=== PATIENT | male | born 1965 | race Caucasian/White ===

== ENCOUNTER 2017-01-19 13:09 | Emergency (ER) | payer OTHER ==
[2017-01-19 13:20] VITALS: BP 153/88; PULSE 82; RESP 20; TEMP 98.1
[2017-01-19] MEDS ORDERED: AMOXICILLIN 500 MG CAP PO STA (14:16)
[2017-01-19] MEDS ORDERED: IBUPROFEN 800 MG TAB PO STA (14:16)
[2017-01-19] MEDS ORDERED: PSEUDOEPHEDRINE 30 MG TAB PO STA (14:16)
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
== END 2017-01-19 14:26 | disposition home or self-care (01) ==
LOC: EC 13:09
DX: H60.91 Unspecified otitis externa, right ear (principal); R51 Headache; R05 Cough; R09.81 Nasal congestion; F17.200 Nicotine dependence, unspecified, uncomplicated
CPT/HCPCS: 99283

== ENCOUNTER 2017-01-23 13:49 | Emergency (ER) | payer OTHER ==
[2017-01-23 14:12] VITALS: RESP 16
[2017-01-23] MEDS ORDERED: SODIUM CHLORIDE 0.9% 1,000 ML IV STA (14:32)
[2017-01-23] MEDS ORDERED: IPRATROPIUM-ALBUTEROL 3 ML NEB INHALATION STA (14:32)
[2017-01-23] MEDS ORDERED: methylPREDNISolone SOD SUCCI 125 MG/2 ML VIAL IV STA (14:32)
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
[2017-01-23 15:08] LABS: Basophils % (A) 1 %; CH 31.8; CHCM 35.6; Eosinophils # (A) 0.1 k/uL (0-0.7); Eosinophils % (A) 1 %; HCT 44.4 % (39.0-53.0); HDW 2.78; HGB 15.4 gm/dL (13.0-17.5); Luc # (Auto) 0.19; Luc % (Auto) 2; Lymphocytes # (A) 1.5 k/uL (1.0-4.8); Lymphocytes % (A) 17 %; MCH 31.2 pg (25.0-35.0); MCHC 34.8 g/dL (31.0-37.0); MCV 89.8 fL (80.0-100.0); Mean Platelet Volume 6.6; Monocytes # (A) 0.3 k/uL (0-1.0); Monocytes % (A) 4 %; Neutrophils # (A) 6.5 k/uL (1.3-7.7); Neutrophils % (A) 75 %; RBC 4.94 m/uL (4.30-5.90); RDW 13.3 % (11.5-15.5); WBC 8.6 k/uL (3.8-10.6); WBC (Perox) 8.79
[2017-01-23 15:16] LABS: Anion Gap 10 mmol/L; Blood Urea Nitrogen 21 mg/dL (9-20); Calcium 9.7 mg/dL (8.4-10.2); Carbon Dioxide 26 mmol/L (22-30); Chloride 105 mmol/L (98-107); Glucose 116 mg/dL (74-99); Non-African American GFR(MDRD) >60 (>60 ml/min/1.73 sqM); Sodium 141 mmol/L (137-145)
--- NOTE | 2017-01-23 15:20 | XR ---
EXAMINATION TYPE: XR chest 2V DATE OF EXAM: 01/23/2017 3:02 PM COMPARISON: 09/23/2016 HISTORY: 51-year-old male with pain TECHNIQUE: PA and lateral views FINDINGS: The heart is normal size. Mild elongation of the thoracic aorta. Mild interstitial prominence is unch anged. Mild hyperinflation. No consolidation or pleural effusion. IMPRESSION: COPD without acute cardiopulmonary process.
[2017-01-23] MEDS ORDERED: RX INFO: IV CONTRAST WAS GIVEN 1 EACH MISC MISCELLANE PRN (15:21)
--- NOTE | 2017-01-23 16:38 | CT ---
CT CHEST FOR PULMONARY EMBOLISM. EXAMINATION TYPE: CT angio chest DATE OF EXAM: 01/23/2017 4:28 PM INDICATION: Patient complains of productive cough. CT DLP: 329.8 mGycm, Automated exposure control for dose reduction was used. CONTRAST: Patient injected with 100 mL of Omnipaque 350. COMPARISON: 11/10/2015 TECHNIQUE: CT of the chest is performed on a spiral scan at 2 mm thick sections. Study is performed with intravenous contrast timed for evaluation for pulmonary embolism. This will limit additional po rtions of the evaluation. 3-D MIP images reconstructed by the technologist are reviewed on the compu ter in the coronal and sagittal planes. FINDINGS: No persistent filling defects are evident to suggest an acute pulmonary embolism. Contrast timing chrissy ears less optimal with some limitation on the peripheral subsegmental branches. No mediastinal or hilar adenopathy enlarged by CT criteria is evident. The ascending aorta diameter at the level of the main pulmonary artery is 3.7 cm. The main pulmonary artery diameter at the bifur cation is 2.7 cm. Coronary artery calcification is present. Emphysematous changes are present with scattered small blebs. Some peribronchial thickening may be pr esent. Correlate for chronic bronchitis. Small area of pneumonitis within the mid right lobe. Series 5 image 64 There is some pneumonitis hagan ge and/or pulmonary fibrosis within the right middle lobe. Within the periphery of the right middle l obe couple of small nodules measuring 0.6-0.3 cm in size series 5 image 82 0.5 cm nodules subtly more inferior on series 5 image 84. Additional small nodules including 0.5 cm nodule series 5 image 90. Previous lingular consolidation has resolved. Nodular densities in the right middle lobe are new. Are as of pneumonitis are new. The compressive atelectasis posteriorly is diminished. Compressive atelectasis is present within the portions of the lung bases bilaterally. Limited CT section through the upper abdomen are unremarkable. IMPRESSIONS: 1. No acute pulmonary embolism. 2. Interval development of small nodular densities within the right middle lobe discussed above. Some areas of pneumonitis are within the right middle lobe. Pneumonia and other infectious etiologies cou ld be considered. Neoplasm is not excluded. These are new from October 2015. Follow-up CT chest exam in 3 months is recommended.
[2017-01-23 17:03] VITALS: BP 123/77; PULSE 88; TEMP 99.7
== END 2017-01-23 17:01 | disposition home or self-care (01) ==
LOC: EC 13:49
DX: J40 Bronchitis, not specified as acute or chronic (principal); R93.8 Abnormal findings on diagnostic imaging of other specified body structures; R79.1 Abnormal coagulation profile; F17.200 Nicotine dependence, unspecified, uncomplicated
CPT/HCPCS: 99284; 96374; 96361; 36415; 94640 ×2; 85379; 80048; 83735; 85025; 87502; 71020; 71275; J2930; Q9967

== ENCOUNTER → 2017-02-13 | Outpatient (CLI) | payer OTHER ==
[2017-02-13 15:12] LABS: Basophils % (A) 1 %; CH 31.5; CHCM 35.2; Eosinophils # (A) 0.1 k/uL (0-0.7); Eosinophils % (A) 3 %; HGB 14.5 gm/dL (13.0-17.5); Luc % (Auto) 4; Lymphocytes # (A) 1.7 k/uL (1.0-4.8); Lymphocytes % (A) 36 %; MCH 31.1 pg (25.0-35.0); MCHC 34.5 g/dL (31.0-37.0); MCV 89.9 fL (80.0-100.0); Mean Platelet Volume 6.6; Monocytes # (A) 0.2 k/uL (0-1.0); Monocytes % (A) 4 %; Neutrophils # (A) 2.4 k/uL (1.3-7.7); Neutrophils % (A) 52 %; RBC 4.67 m/uL (4.30-5.90); WBC 4.7 k/uL (3.8-10.6); WBC (Perox) 4.62
[2017-02-13 15:19] LABS: Appearance,Urine Clear (Clear); Bacteria,Urine Rare /hpf; Bilirubin,Urine Negative (Negative); Glucose,Urine (UA) Negative (Negative); Ketones,Urine Negative (Negative); Leukocyte Esterase,Urine Negative (Negative); Nitrite,Urine Negative (Negative); PH, Urine 6.5 (5.0-8.0); Particle Count 1799; Protein,Urine 1+ (Negative); RBC,Urine 6 /hpf (0-5); UA Billing (MACRO vs. MICRO) MICRO; Urobilinogen,Urine <2.0 mg/dL (<2.0); WBC,Urine 1 /hpf (0-5)
[2017-02-13 18:06] LABS: Erythrocyte Sedimentation Rate 44 mm/hr (0-15)
== END | disposition home or self-care (01) ==
LOC: LABWHC1 14:37
PROVIDERS: ATTEND Internal Medicine
DX: R04.2 Hemoptysis (principal); A50.02 Early congenital syphilitic osteochondropathy
CPT/HCPCS: 36415; 81001; 85025; 85652; 86038; 86255

== ENCOUNTER 2017-05-07 11:26 | Emergency (ER) | payer OTHER ==
[2017-05-07 11:42] VITALS: TEMP 97.8
[2017-05-07 12:45] LABS: Basophils % (A) 1 %; CH 32.9; CHCM 35.1; Eosinophils # (A) 0.1 k/uL (0-0.7); Eosinophils % (A) 2 %; HCT 47.7 % (39.0-53.0); HDW 2.78; HGB 15.9 gm/dL (13.0-17.5); Luc # (Auto) 0.15; Luc % (Auto) 3; Lymphocytes # (A) 1.5 k/uL (1.0-4.8); Lymphocytes % (A) 33 %; MCH 31.3 pg (25.0-35.0); MCHC 33.3 g/dL (31.0-37.0); MCV 94.1 fL (80.0-100.0); Mean Platelet Volume 7.1; Monocytes # (A) 0.2 k/uL (0-1.0); Monocytes % (A) 4 %; Neutrophils # (A) 2.7 k/uL (1.3-7.7); Neutrophils % (A) 57 %; RBC 5.07 m/uL (4.30-5.90); WBC 4.7 k/uL (3.8-10.6); WBC (Perox) 4.65
[2017-05-07 12:59] LABS: ALT 37 U/L (21-72); AST 24 U/L (17-59); Alkaline Phosphatase 117 U/L (38-126); Anion Gap 8 mmol/L; Blood Urea Nitrogen 18 mg/dL (9-20); C Reactive Protein 16.8 mg/L (<10.0); Calcium 9.7 mg/dL (8.4-10.2); Carbon Dioxide 27 mmol/L (22-30); Chloride 105 mmol/L (98-107); Glucose 84 mg/dL (74-99); Non-African American GFR(MDRD) >60 (>60 ml/min/1.73 sqM); Potassium 4.3 mmol/L (3.5-5.1); Sodium 140 mmol/L (137-145); Total Bilirubin 0.7 mg/dL (0.2-1.3); Total Protein 7.7 g/dL (6.3-8.2); Uric Acid 5.6 mg/dL (3.5-8.5)
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
[2017-05-07 13:38] VITALS: BP 157/82; PULSE 79; RESP 18
== END 2017-05-07 13:38 | disposition home or self-care (01) ==
LOC: EC 11:26
DX: M25.422 Effusion, left elbow (principal); M25.421 Effusion, right elbow; F17.200 Nicotine dependence, unspecified, uncomplicated; Z98.890 Other specified postprocedural states
CPT/HCPCS: 36415; 80053; 84550; 85025; 86140; 99284

== ENCOUNTER → 2017-05-30 | Outpatient (CLI) | payer OTHER ==
--- NOTE | 2017-05-30 08:32 | CT ---
EXAMINATION TYPE: CT chest w con DATE OF EXAM: 05/30/2017 COMPARISON: CTA chest January 23, 2017. HISTORY: Microscopic polyangiitis CT DLP: 332.3 mGycm. Automated Exposure Control for Dose Reduction was Utilized. TECHNIQUE: CT scan of the thorax is performed following with IV Contrast, patient injected with 100 mL of Omnipaque 300. FINDINGS: LUNGS: The lungs are predominantly clear on current study, there is no concerning parenchymal mass or nodule identified. Dependent atelectasis is seen in both lower lobes. No suspicious consolidation o r groundglass opacity to suggest alveolar hemorrhage is identified currently. There is resolution of ill-defined peribronchial vascular groundglass and nodular opacities in the right midlung on prior s tudy. No significant fibrosis or honeycombing is seen. There is no pleural effusion or pneumothorax s een. The tracheobronchial tree is patent. MEDIASTINUM: There are no greater than 1 cm hilar or mediastinal lymph nodes. No cardiomegaly or pe ricardial effusion is seen. Coronary artery calcification is redemonstrated which is noted marker fo r coronary artery disease. Ascending aorta measures up to 3.6 cm in diameter on axial image 29 stable from prior. OTHER: Thoracolumbar spine is somewhat straightened on sagittal images with mild to moderate multilev el spurring seen. IMPRESSION: No significant acute or chronic pulmonary parenchymal process currently.
== END | disposition home or self-care (01) ==
LOC: RADCTMAIN 06:58
PROVIDERS: ATTEND Internal Medicine Rheumatology
DX: M31.7 Microscopic polyangiitis (principal)
CPT/HCPCS: 71260; Q9967

== ENCOUNTER 2017-07-05 16:53 | Emergency (ER) | payer OTHER ==
[2017-07-05 16:56] VITALS: BP 159/95; PULSE 108; RESP 20; TEMP 97.1
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
== END 2017-07-05 17:38 | disposition home or self-care (01) ==
LOC: EC 16:53
DX: H72.91 Unspecified perforation of tympanic membrane, right ear (principal); F17.200 Nicotine dependence, unspecified, uncomplicated
CPT/HCPCS: 99282

== ENCOUNTER 2017-07-13 17:05 | Emergency (ER) | payer OTHER ==
[2017-07-13] MEDS ORDERED: SODIUM CHLORIDE 0.9% 500 ML IV STA (17:52)
[2017-07-13] MEDS ORDERED: SODIUM CHLORIDE 0.9% 1,000 ML IV STA (17:52)
[2017-07-13] MEDS ORDERED: RX INFO: IV CONTRAST WAS GIVEN 1 EACH MISC MISCELLANE PRN (17:52)
[2017-07-13] MEDS ORDERED: MAG HYDROX/AL HYDROX/SIMETH 30 ML, HYOSCYAMINE ELIXIR 10 ML, CIMETIDINE HCL 300 MG PO STA ×3 (17:52)
[2017-07-13] MEDS ORDERED: ONDANSETRON 4 MG/2 ML VIAL IVP STA (17:52)
[2017-07-13] MEDS ORDERED: PANTOPRAZOLE 40 MG/10 ML VIAL IVP STA (17:52)
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
[2017-07-13 19:08] LABS: Appearance,Urine Clear (Clear); Basophils % (A) 0 %; Bilirubin,Urine Negative (Negative); CH 31.9; CHCM 35.6; Eosinophils # (A) 0.3 k/uL (0-0.7); Eosinophils % (A) 4 %; Glucose,Urine (UA) Negative (Negative); HCT 43.2 % (39.0-53.0); HDW 2.85; HGB 15.2 gm/dL (13.0-17.5); Ketones,Urine Negative (Negative); Leukocyte Esterase,Urine Negative (Negative); Luc # (Auto) 0.25; Luc % (Auto) 4; Lymphocytes # (A) 1.9 k/uL (1.0-4.8); Lymphocytes % (A) 27 %; MCH 31.6 pg (25.0-35.0); MCHC 35.1 g/dL (31.0-37.0); MCV 90.1 fL (80.0-100.0); Mean Platelet Volume 6.6; Monocytes # (A) 0.3 k/uL (0-1.0); Monocytes % (A) 5 %; Mucus,Urine Few /hpf; Neutrophils # (A) 4.2 k/uL (1.3-7.7); Neutrophils % (A) 61 %; Nitrite,Urine Negative (Negative); PH, Urine 5.5 (5.0-8.0); Partial Thromboplastin Time 29.5 sec (22.0-30.0); Particle Count 10148; Protein,Urine 1+ (Negative); Prothrombin Time 10.4 sec (9.0-12.0); RBC,Urine 4 /hpf (0-5); RDW 12.6 % (11.5-15.5); Specific Gravity,Urine 1.023 (1.001-1.035); UA Billing (MACRO vs. MICRO) MICRO; Urobilinogen,Urine <2.0 mg/dL (<2.0); WBC (Perox) 6.36; WBC,Urine 2 /hpf (0-5)
[2017-07-13 19:21] LABS: ALT 37 U/L (21-72); AST 15 U/L (17-59); Alkaline Phosphatase 104 U/L (38-126); Amylase 47 U/L (30-110); Anion Gap 9 mmol/L; Blood Urea Nitrogen 19 mg/dL (9-20); Calcium 9.6 mg/dL (8.4-10.2); Carbon Dioxide 28 mmol/L (22-30); Chloride 102 mmol/L (98-107); Glucose 96 mg/dL (74-99); Non-African American GFR(MDRD) 58 (>60 ml/min/1.73 sqM); Potassium 4.2 mmol/L (3.5-5.1); Sodium 139 mmol/L (137-145); Total Bilirubin 0.5 mg/dL (0.2-1.3); Total Protein 7.4 g/dL (6.3-8.2)
--- NOTE | 2017-07-13 19:35 | CT ---
EXAMINATION TYPE: CT abdomen pelvis w con DATE OF EXAM: 07/13/2017 COMPARISON: NONE HISTORY: ab pain/dark stool CT DLP: 548 mGycm, Automated Exposure Control for Dose Reduction was Utilized. CONTRAST: CT scan of the abdomen and pelvis is performed without oral but with IV Contrast, patient injected w ith 100 mL of Omnipaque 300. FINDINGS: LUNG BASES: No significant abnormality is appreciated. LIVER/GB: No significant abnormality is appreciated. PANCREAS: No significant abnormality is seen. SPLEEN: Splenomegaly is seen measuring 15.4 cm on long axis on coronal image 45. ADRENALS: No significant abnormality is seen. KIDNEYS: No significant abnormality is seen. BOWEL: Evaluation bowel is suboptimal secondary to lack of enteric contrast. There is no suspicious s mall or large bowel dilatation seen. Normal-appearing appendix is seen from the cecum PROSTATE/SEMINAL VESICLES: Prostate gland is heterogeneous in appearance and large in size bulging on bladder base, clinical correlation for BPH is advised. LYMPH NODES: No greater than 1cm abdominal or pelvic lymph nodes are appreciated. OSSEOUS STRUCTURES: There is mild to moderate multilevel spurring in the spine. OTHER: There is mild to moderate calcified aftereffect change of aorta extending into branch vessels. IMPRESSION: No significant finding is seen to account for patient's clinical symptoms. Splenomegaly is noted and may warrant further clinical workup.
[2017-07-13 20:10] VITALS: PULSE 68; RESP 18; TEMP 98.4
[2017-07-13 20:31] VITALS: BP 173/98
== END 2017-07-13 20:35 | disposition home or self-care (01) ==
LOC: EC 17:05
DX: K29.70 Gastritis, unspecified, without bleeding (principal); R16.1 Splenomegaly, not elsewhere classified; F17.200 Nicotine dependence, unspecified, uncomplicated; Z79.899 Other long term (current) drug therapy
CPT/HCPCS: 99284 ×2; 96374 ×2; 96375 ×2; 96361 ×3; 36415; 80053; 82150; 83690; 85025; 85610; 85730; 81001; 74177; J2405; Q9967; C9113

== ENCOUNTER 2017-12-01 18:29 | Emergency (ER) | payer OTHER ==
[2017-12-01 19:12] LABS: Appearance,Urine Clear (Clear); Bacteria,Urine Rare /hpf; Bilirubin,Urine Negative (Negative); Blood,Urine Small (Negative); Color,Urine Yellow; Glucose,Urine (UA) Negative (Negative); Ketones,Urine Negative (Negative); Leukocyte Esterase,Urine Negative (Negative); Mucus,Urine Rare /hpf; PH, Urine 5.5 (5.0-8.0); Protein,Urine 1+ (Negative); RBC,Urine 4 /hpf (0-5); Specific Gravity,Urine 1.024 (1.001-1.035); Squamous Epithelial Cell,Urine <1 /hpf (0-4); Urobilinogen,Urine <2.0 mg/dL (<2.0); WBC,Urine 1 /hpf (0-5)
[2017-12-01 19:24] LABS: Basophils % (A) 1 %; Eosinophils # (A) 0.1 k/uL (0-0.7); Eosinophils % (A) 2 %; HCT 47.9 % (39.0-53.0); HGB 16.8 gm/dL (13.0-17.5); Lymphocytes # (A) 1.6 k/uL (1.0-4.8); Lymphocytes % (A) 26 %; MCH 31.6 pg (25.0-35.0); MCV 90.3 fL (80.0-100.0); Mean Platelet Volume 6.5; Monocytes # (A) 0.3 k/uL (0-1.0); Monocytes % (A) 4 %; Neutrophils # (A) 4.1 k/uL (1.3-7.7); Neutrophils % (A) 65 %; Platelet Count 240 k/uL (150-450); RDW 13.9 % (11.5-15.5); WBC 6.2 k/uL (3.8-10.6)
[2017-12-01 19:40] LABS: Anion Gap 12 mmol/L; Blood Urea Nitrogen 21 mg/dL (9-20); Calcium 9.9 mg/dL (8.4-10.2); Carbon Dioxide 24 mmol/L (22-30); Chloride 104 mmol/L (98-107); Glucose 166 mg/dL (74-99); Potassium 4.3 mmol/L (3.5-5.1); Sodium 140 mmol/L (137-145)
--- NOTE | 2017-12-01 20:08 | XR ---
EXAMINATION TYPE: XR chest 2V DATE OF EXAM: 12/01/2017 COMPARISON: 01/23/2017 INDICATION: Cough shortness of breath chest pressure x3 days TECHNIQUE: Frontal and lateral views of the chest are obtained. FINDINGS: The heart size is normal. The pulmonary vasculature is normal. The lungs are clear. IMPRESSION: 1. No acute pulmonary process.
[2017-12-01] MEDS ORDERED: RX INFO: IV CONTRAST WAS GIVEN 1 EACH MISC MISCELLANE PRN (20:17)
[2017-12-01 20:21] LABS: Creatine Kinase 395 U/L (55-170)
[2017-12-01] MEDS ORDERED: ACETAMINOPHEN TAB 325 MG TAB PO STA (20:24)
[2017-12-01 20:33] LABS: Troponin I <0.012 ng/mL (0.000-0.034)
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
--- NOTE | 2017-12-01 21:28 | CT ---
CT CHEST FOR PULMONARY EMBOLISM. EXAMINATION TYPE: CT angio chest DATE OF EXAM: 12/01/2017 INDICATION: Chest pain x4 days. CT DLP: 315.5 mGycm, Automated exposure control for dose reduction was used. CONTRAST: Patient injected with 100ml mL of Omnipaque 350. COMPARISON: 05/30/2017 TECHNIQUE: CT of the chest is performed on a spiral scan at 2 mm thick sections. Study is performed with intravenous contrast timed for evaluation for pulmonary embolism. This will limit additional po rtions of the evaluation. 3-D MIP images reconstructed by the technologist are reviewed on the compu ter in the coronal and sagittal planes. FINDINGS: No persistent filling defects are evident to suggest an acute pulmonary embolism. No mediastinal or hilar adenopathy enlarged by CT criteria is evident. The ascending aorta diameter at the level of the main pulmonary artery is 3.7 cm. The main pulmonary artery diameter at the bifur cation is 2.5 cm. There is a consolidation in the posterior lateral right lung. Pneumonia should be considered. Underly ing mass is not excluded. This would measure an estimated 4.3 x 1.9. This should be followed to clear ing. This was not present on the comparison study. Note is made of paraseptal emphysematous changes in the upper lung osuna. Limited CT section through the upper abdomen are unremarkable. IMPRESSIONS: 1. No acute pulmonary embolism. 2. Consolidation versus mass posterior medial right lower lung field. Correlate for pneumonia. Follow -up to clearing is recommended. 3. Paraseptal emphysematous changes.
[2017-12-01] MEDS ORDERED: cefTRIAXone IN SWFI 1,000 MG/10 ML SYRINGE IVP STA (22:00)
[2017-12-01 22:07] VITALS: BP 132/82; PULSE 79; RESP 15; TEMP 97.9
== END 2017-12-01 22:44 | disposition home or self-care (01) ==
LOC: EC 18:29
DX: J18.1 Lobar pneumonia, unspecified organism (principal); R00.0 Tachycardia, unspecified; F17.200 Nicotine dependence, unspecified, uncomplicated
CPT/HCPCS: 36415; 93005; 80048; 82550; 82553; 83605; 84484; 85025; 81001; 87040; 87502; 71046; 71275; 99284; 96374; Q9967; J0696

== ENCOUNTER 2018-01-24 15:21 | Emergency (ER) | payer OTHER ==
[2018-01-24 15:30] VITALS: RESP 18; TEMP 97.2
[2018-01-24 16:04] VITALS: BP 145/88; PULSE 82
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
--- NOTE | 2018-01-24 16:18 | XR ---
EXAMINATION TYPE: XR chest 2V DATE OF EXAM: 01/24/2018 COMPARISON: 12/01/2017 HISTORY: 52-year-old male with pain TECHNIQUE: PA and lateral views FINDINGS: The heart is normal size. Mild elongation of the thoracic aorta. Mild interstitial prominence is unch anged. No consolidation or pleural effusion. IMPRESSION: Chronic changes without acute cardiopulmonary process.
== END 2018-01-24 16:41 | disposition home or self-care (01) ==
LOC: EC 15:21
DX: J06.9 Acute upper respiratory infection, unspecified (principal); H66.92 Otitis media, unspecified, left ear; F17.200 Nicotine dependence, unspecified, uncomplicated
CPT/HCPCS: 71046; 87502; 99283

== ENCOUNTER 2018-03-01 08:54 | Emergency (ER) | payer OTHER ==
[2018-03-01 09:04] VITALS: BP 145/87; PULSE 79; RESP 20; TEMP 97
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
== END 2018-03-01 09:40 | disposition home or self-care (01) ==
LOC: EC 08:54
DX: H69.83 Other specified disorders of Eustachian tube, bilateral (principal); J32.9 Chronic sinusitis, unspecified; F17.200 Nicotine dependence, unspecified, uncomplicated
CPT/HCPCS: 99282

== ENCOUNTER 2018-05-04 08:45 | Emergency (ER) | payer OTHER ==
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
[2018-05-04 10:22] LABS: Basophils % (A) 0 %; Eosinophils # (A) 0.1 k/uL (0-0.7); Eosinophils % (A) 2 %; HCT 48.8 % (39.0-53.0); HGB 16.3 gm/dL (13.0-17.5); Lymphocytes % (A) 20 %; MCH 30.2 pg (25.0-35.0); MCHC 33.5 g/dL (31.0-37.0); Monocytes # (A) 0.1 k/uL (0-1.0); Monocytes % (A) 2 %; Neutrophils # (A) 3.7 k/uL (1.3-7.7); Neutrophils % (A) 73 %; Platelet Count 197 k/uL (150-450); RBC 5.42 m/uL (4.30-5.90); RDW 13.7 % (11.5-15.5); WBC 5.1 k/uL (3.8-10.6)
[2018-05-04 10:31] LABS: Partial Thromboplastin Time 29.6 sec (22.0-30.0); Prothrombin Time 9.8 sec (9.0-12.0)
[2018-05-04] MEDS ORDERED: PROPARACAINE 0.5% OPHTH DROPS 15 ML BTL LEFT EYE STA (10:33)
[2018-05-04 10:35] LABS: ALT 44 U/L (21-72); AST 39 U/L (17-59); Alkaline Phosphatase 112 U/L (38-126); Anion Gap 7 mmol/L; Blood Urea Nitrogen 22 mg/dL (9-20); Calcium 9.5 mg/dL (8.4-10.2); Carbon Dioxide 26 mmol/L (22-30); Chloride 107 mmol/L (98-107); Glucose 94 mg/dL (74-99); Potassium 4.5 mmol/L (3.5-5.1); Sodium 140 mmol/L (137-145); Total Protein 7.9 g/dL (6.3-8.2)
[2018-05-04 11:17] VITALS: BP 127/77; PULSE 66; RESP 18; TEMP 97.8
== END 2018-05-04 11:17 | disposition home or self-care (01) ==
LOC: EC 08:45
DX: S05.02XA Injury of conjunctiva and corneal abrasion without foreign body, left eye, initial encounter (principal); H60.501 Unspecified acute noninfective otitis externa, right ear; L08.9 Local infection of the skin and subcutaneous tissue, unspecified; F17.200 Nicotine dependence, unspecified, uncomplicated
CPT/HCPCS: 36415; 80053; 85025; 85610; 85730; 87040; 99283

== ENCOUNTER 2018-05-17 15:46 | Emergency (ER) | payer OTHER ==
[2018-05-17 16:20] VITALS: RESP 18
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
[2018-05-17 17:46] VITALS: BP 159/99; PULSE 58; TEMP 97.3
== END 2018-05-17 17:46 | disposition home or self-care (01) ==
LOC: EC 15:46
DX: L97.829 Non-pressure chronic ulcer of other part of left lower leg with unspecified severity (principal); F17.200 Nicotine dependence, unspecified, uncomplicated
CPT/HCPCS: 99282

== ENCOUNTER 2018-06-01 13:09 | Emergency (ER) | payer OTHER ==
[2018-06-01 13:24] VITALS: RESP 18
[2018-06-01 14:08] LABS: Basophils % (A) 0 %; Eosinophils # (A) 0.2 k/uL (0-0.7); Eosinophils % (A) 2 %; HCT 42.8 % (39.0-53.0); HGB 14.2 gm/dL (13.0-17.5); Lymphocytes # (A) 0.8 k/uL (1.0-4.8); Lymphocytes % (A) 9 %; MCHC 33.1 g/dL (31.0-37.0); MCV 93.6 fL (80.0-100.0); Mean Platelet Volume 6.1; Monocytes # (A) 0.3 k/uL (0-1.0); Monocytes % (A) 3 %; Neutrophils % (A) 85 %; Platelet Count 188 k/uL (150-450); RBC 4.57 m/uL (4.30-5.90); WBC 9.4 k/uL (3.8-10.6)
[2018-06-01 14:18] LABS: Albumin 3.7 g/dL (3.5-5.0); Calcium 9.4 mg/dL (8.4-10.2); Potassium 4.3 mmol/L (3.5-5.1); Total Bilirubin 0.4 mg/dL (0.2-1.3); Total Protein 7.4 g/dL (6.3-8.2)
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
[2018-06-01 15:38] LABS: Appearance,Urine Clear (Clear); Bilirubin,Urine Negative (Negative); Blood,Urine Large (Negative); Color,Urine Yellow; Glucose,Urine (UA) Negative (Negative); Hyaline Casts,Urine 1 /lpf (0-2); Ketones,Urine Negative (Negative); Leukocyte Esterase,Urine Negative (Negative); Mucus,Urine Rare /hpf; Nitrite,Urine Negative (Negative); Protein,Urine 2+ (Negative); RBC,Urine 13 /hpf (0-5); Specific Gravity,Urine 1.027 (1.001-1.035); Squamous Epithelial Cell,Urine <1 /hpf (0-4); Urobilinogen,Urine <2.0 mg/dL (<2.0); WBC,Urine 5 /hpf (0-5)
--- NOTE | 2018-06-01 15:47 | US ---
EXAMINATION TYPE: US abdomen limited DATE OF EXAM: 06/01/2018 COMPARISON: CT CLINICAL HISTORY: Pain. RUQ pain EXAM MEASUREMENTS: Liver Length: 17.0 cm Gallbladder Wall: 0.2 cm CBD: 0.5 cm Right Kidney: 11.3 x 4.5 x 4.5 cm Pancreas: Obscured by bowel gas Liver: Upper limits of normal for size, otherwise appeared wnl Gallbladder: wnl Evidence for sonographic Miller's sign: Yes CBD: wnl Right Kidney: wnl IMPRESSION: No gallstones or dilated ducts. There was some tenderness over the gallbladder..
[2018-06-01 16:59] VITALS: BP 124/81; PULSE 87; TEMP 98
== END 2018-06-01 16:59 | disposition home or self-care (01) ==
LOC: EC 13:09
DX: R10.11 Right upper quadrant pain (principal); R31.9 Hematuria, unspecified; F17.200 Nicotine dependence, unspecified, uncomplicated
CPT/HCPCS: 36415; 76705; 80053; 81001; 82150; 83690; 85025; 99284